=== PATIENT | female | born 1945 | race Caucasian/White ===

== ENCOUNTER 2018-04-23 07:16 | Day surgery (SDC) | payer OTHER, MEDICARE ==
--- NOTE | 2018-04-19 16:05 | RAD REPORT ---
EXAM DESCRIPTION: RAD - Chest Pa And Lat (2 Views) - 04/19/2018 3:17 pm CLINICAL HISTORY: Preop chest, pending cardiac catheterization COMPARISON: September 2015 TECHNIQUE: PA and lateral views of the chest were obtained. FINDINGS: The lungs are clear. Interstitial markings are similar to comparison. Heart size is ned l and central vasculature is within normal limits. No pleural effusion or pneumothorax seen. No acu te bony finding noted. No aortic abnormality. IMPRESSION: No acute cardiopulmonary process.
[2018-04-20 11:51] LABS: Absolute Monocytes 0.6 K/uL (0.1-1.3); Absolute Neutrophil 4.6 K/uL (1.8-8.0); Basophils % 0.6 % (0-1.3); Eosinophils % 4.2 % (0-4.4); Hematocrit 40.9 % (36.0-45.0); Lymphocytes % 35.1 % (15.3-44.8); MCH 27.7 pg (27.0-35.0); MPV 8.2 fL (7.6-11.3); Monocytes % 7.2 % (3.3-12.3); RBC Red Blood Cell Count 5.05 M/uL (3.86-4.86)
[2018-04-20 11:53] LABS: Protime INR 0.96
[2018-04-20 12:02] LABS: Potassium 3.7 mmol/L (3.5-5.1)
[2018-04-23] MEDS ORDERED: LIDOCAINE 1% MPF 2 ML AMPULE ONE (07:29)
[2018-04-23] MEDS ORDERED: NA CHLORIDE 0.9% 500 ML ONE (07:29)
[2018-04-23] MEDS ORDERED: HEPA 1000U/500MLS 2,000 UNIT/1,000 ML BAG IV ONE (07:54)
[2018-04-23] MEDS ORDERED: HEPARIN 5000 UNIT/ML 1 ML VIAL ONE (07:54)
[2018-04-23] MEDS ORDERED: NITROGLYCERIN 100 MCG/ML SYR (for cath lab use only) IV ONE (07:55)
[2018-04-23] MEDS ORDERED: NITROGLYCERIN/D5W 25 MG/250 ML BTL IV ONE (07:55)
[2018-04-23] MEDS ORDERED: NICARDIPINE HCL 25 MG/10 ML IV ONE (07:55)
[2018-04-23] MEDS ORDERED: FENTANYL CITR 100 MCG/2 ML ONE (08:03)
[2018-04-23] MEDS ORDERED: MIDAZOLAM HCL 2 MG/2 ML INJ ONE ×2 (08:03→08:21)
[2018-04-23 11:17] VITALS: BP 170/58; TEMP 97.4; O2SAT 95
--- NOTE | 2018-04-23 19:51 | OP ---
Surgeon: Corby Byers MD Procedure: Left heart catheterization, coronary and left ventricular angiography. Findings: The patient had normal coronary arteries. Normal left ventricular ejection fraction. Nor mal pressures. Her aortic pressure is 100/59, LV pressure 100/10. This was after receiving nicardip ine and nitroglycerin. Her blood pressure before that had been 120/70. Procedure In Detail: The patient was brought to the cardiac rn labor and delivery in a fasting state. She had le ft bundle-branch block and abnormal myocardial perfusion image suggesting apical scar and ischemia. She was prepared and draped in the usual sterile fashion, sedated with Versed and fentanyl, titrated to an adequate level of sedation. Right radial approach was used. The tissues above the right radia l artery were anesthetized with 1 cc of 1% lidocaine. A 21-gauge needle was used to enter the artery . It was then cannulated with an 0.021 inch diameter guidewire. We then used the modified Seldinger technique to place a 6-Uzbek radial sheath. This was flushed with saline and then a radial cocktai l was given consisting of nicardipine, heparin, and nitroglycerin. We used a TIG catheter. It was g uided into the ascending aorta using a [place] Glidewire with a short radius J-tip and fluoroscopy. T he wire was removed. We were able to used a TIG catheter to angiogram right coronary, left coronary and left ventricle. At the end of the procedure, the catheter was withdrawn over a J-wire. The dumont th was withdrawn and the arteriotomy was closed using a TR band. There were no complications from th e procedure. Estimated Blood Loss: 5 cc. Associate Financial Analyst: Estephania Del Valle. IVA/LAUREL Voice ID: [id number] Report ID: [id number]
== END 2018-04-23 11:00 | disposition home or self-care (01) ==
LOC: CCL 07:16
PROVIDERS: ATTEND Internal Medicine
DX: R94.39 Abnormal result of other cardiovascular function study (principal); I10 Essential (primary) hypertension; E78.5 Hyperlipidemia, unspecified
CPT/HCPCS: 36415; 71046; 80048; 85025; 85610; 85730; 93458; C1893; J1644; J2001; J2250 ×2; J3010